=== PATIENT | male | born 1945 | race Caucasian/White ===

== ENCOUNTER 2017-01-09 11:06 | Day surgery (SDC) | payer MEDICARE, OTHER ==
[2017-01-05 15:33] LABS: HEMATOCRIT 42.7 % (40.0-51.0); HEMOGLOBIN 14.6 g/dL (13.6-17.8)
[2017-01-05 15:40] LABS: BUN (BLOOD UREA NITROGEN) 9 MG/DL (6-23); CALCIUM, SERUM 8.7 MG/DL (8.5-10.4); CHLORIDE, SERUM 108 MMOL/L (96-112); CO2 (CARBON DIOXIDE) 28 MMOL/L (24-34); CREATININE 1.14 MG/DL (0.70-1.30); GFR AFRICAN AMERICAN 75 ML/MIN (>=60); GFR NON AFRICAN AMERICAN 64 ML/MIN (>=60); GLUCOSE, SERUM 116 MG/DL (60-99); POTASSIUM, SERUM 4.1 MMOL/L (3.5-5.3); SODIUM, SERUM 139 MMOL/L (135-148)
[~2017-01-09 11:06] MED LIST: BL CHROMIUM200 MCG PO; BRILINTA90 MG PO; ELIQUIS 5 MG TAB5 MG PO; FISH-EPA1000 MG PO; FLOMAX4 PO; KLONO5 PO; LIPITOR40 PO; LYRICA200 MG PO; PRIN10 PO; PROTONIX PO; STOOL SOFTEN240 MG PO; TRAZ50 PO
== END 2017-01-09 13:08 | disposition home or self-care (01) ==
LOC: SDC 11:06
PROVIDERS: Urology
DX: R39.11 Hesitancy of micturition (principal); Z53.8 Procedure and treatment not carried out for other reasons; Z90.49 Acquired absence of other specified parts of digestive tract; Z96.652 Presence of left artificial knee joint; Z98.890 Other specified postprocedural states
CPT/HCPCS: 80048; 85014; 85018; 93005; J2250; J3010

== ENCOUNTER 2017-01-12 11:45 | Observation (INO) | payer MEDICARE, OTHER ==
--- NOTE | ~2017-01-12 | OP ---
Record Of Operation [facility] [address] [place]. [address] NAME: BYRON RUVALCABA : 45 STATUS : ADM IN PAT#: [id number] AGE: 71 ADM/REG DATE : 01/12/17 MR#: [id number] REPORT SERV DATE: 01/12/17 DICTATED BY: STEWART MELGOZA III DATE: 01/12/17 REPORT STATUS : Draft TRANSCRIBED BY: MODL DATE: 01/12/17 DATE OF PROCEDURE: 01/12/2017 PREOPERATIVE DIAGNOSIS: Benign prostatic hypertrophy with bladder outlet obstruction. POSTOPERATIVE DIAGNOSIS: Benign prostatic hypertrophy with bladder outlet obstruction. PROCEDURE: Transurethral resection of prostate gland. SURGEON: Stewart Melgoza M.D. ANESTHESIA: General. SPECIMEN: Prostate chips. DRAINS: A 24-Nepalese three-way Demarco catheter. BLOOD LOSS: 25 mL. INDICATION: Mr. Ruvalcaba is a 71-year-old white male with known enlargement of the prostate gland and bladder outlet obstruction refractory to medical therapy. Consent is obtained for transurethral resection of the prostate gland. He has been counseled regarding the risks of bleeding, infection, as well as ejaculatory dysfunction. DESCRIPTION OF PROCEDURE: After consent was obtained, the patient was identified, was taken to the OR and put to sleep. He was positioned in the low lithotomy position and prepped and draped in the usual fashion. A 22-Nepalese cystoscope was made ready and advanced along the course of the urethra. The patient did have a high median bar, but the obstruction was primarily bilobar. The bladder was inspected. It was moderately trabeculated. There were no cellules noted. No tumors or stones were noted. The bladder was left full. The urethra was then dilated to 28-Nepalese with John sounds and the 26-Nepalese resectoscope was inserted. A transurethral resection of prostate gland was performed in routine fashion. Initially, the median bar was taken down to circular fibers followed by the lateral lobes, floor and roof of the prostatic urethra. Care was taken to not resect too far distally. A rollerball was then used to cauterize the area of resection to obtain decent hemostasis. The NOBOT evacuators were used to evacuate all the prostate chips from the bladder. The bladder was then left full and the scope removed. A 24-Nepalese three-way Demarco catheter was inserted using a catheter guide and the balloon inflated to 30 mL. This was pulled down to the bladder neck and bladder irrigation was begun, which was relatively clear. The patient was then awakened and taken to recovery in stable condition. PH/MODL Stewart Melgoza Record Of [address] [address] NAME: BYRON RUVALCABA : 45 STATUS : ADM IN PAT#: [id number] AGE: 71 ADM/REG DATE : 01/12/17 MR#: [id number] REPORT SERV DATE: 01/12/17 DICTATED BY: STEWART MELGOZA III DATE: 01/12/17 REPORT STATUS : Draft TRANSCRIBED BY: MODL DATE: 01/12/17 Sneha CALDWELL / [id number] CC: Stewart Melgoza III, M.D.
[2017-01-12 16:08] LABS: HEMATOCRIT 41.3 % (40.0-51.0)
[2017-01-13 05:30] LABS: HEMATOCRIT 40.8 % (40.0-51.0)
[2017-01-13] MEDS ORDERED: ULTRAM50 PO (14:12)
== END 2017-01-13 14:52 | disposition home or self-care (01) ==
LOC: SDC/OF 11:45 → PACU 15:24 → 4SO 19:39
PROVIDERS: Urology
PROC: 0VT08ZZ Resection of Prostate, Via Natural or Artificial Opening Endoscopic (ICD-10-PCS; principal; 2017-01-12 13:30)
DX: N40.1 Benign prostatic hyperplasia with lower urinary tract symptoms (principal); N13.8 Other obstructive and reflux uropathy; I25.10 Atherosclerotic heart disease of native coronary artery without angina pectoris; I10 Essential (primary) hypertension; Z95.5 Presence of coronary angioplasty implant and graft; Z88.2 Allergy status to sulfonamides; Z88.6 Allergy status to analgesic agent; Z88.5 Allergy status to narcotic agent; Z79.899 Other long term (current) drug therapy; Z90.49 Acquired absence of other specified parts of digestive tract; Z96.652 Presence of left artificial knee joint; Z98.890 Other specified postprocedural states
CPT/HCPCS: 84295; 85014; 85018; 88305; A9270-GY; G0378; J2250; J2405; J2550; J2710; J3010

== ENCOUNTER 2017-01-14 19:01 | Emergency (ER) | payer MEDICARE, OTHER ==
[~2017-01-14 19:01] MED LIST changes: +ULTRAM50 PO
[2017-01-14 20:03] LABS: BASOPHILS 0.1 %; BASOPHILS ABSOLUTE 0.01 10/3/uL (0.0-0.16); EOSINOPHILS 0.2 %; EOSINOPHILS ABSOLUTE 0.02 10/3/uL (0.0-0.53); ER CBC TAT 0 Hrs 05 Mins; HEMATOCRIT 40.5 % (40.0-51.0); HEMOGLOBIN 14.2 g/dL (13.6-17.8); IMMATURE GRANULOCYTES 0.4 %; IMMATURE GRANULOCYTES ABSOLUTE 0.05 10/3/uL (0.0-0.11); LYMPHOCYTES 3.7 %; LYMPHOCYTES ABSOLUTE 0.43 10/3/uL (0.67-4.30); MEAN CORPUS HGB CONC 35.1 g/dL (32.0-36.0); MEAN CORPUSCULAR HEMOGLOB 30.5 pg (26.0-34.0); MEAN CORPUSCULAR VOLUME 87.1 fL (80-100); MEAN PLATELET VOLUME 11.3 fL (9.2-13.0); MONOCYTES 10.5 %; MONOCYTES ABSOLUTE 1.22 10/3/uL (0.21-1.20); NEUTROPHILS 85.1 %; NEUTROPHILS ABSOLUTE 9.92 10/3/uL (2.02-8.40); PLATELET COUNT 121 10/3/uL (150-400); RBC DISTRIBUTION WIDTH 14.3 % (12.0-16.0); RED CELL COUNT 4.65 10/6/uL (4.7-6.1); WHITE BLOOD CELLS 11.7 10/3/uL (4.5-10.5)
[2017-01-14 20:06] LABS: MANUAL DIFF NO %
[2017-01-14 20:21] LABS: A/G RATIO 1.1 (0.7-1.9); ALBUMIN 3.6 G/DL (3.5-5.0); ALKALINE PHOSPHATASE 85 U/L (45-117); BUN (BLOOD UREA NITROGEN) 15 MG/DL (6-23); CALCIUM, SERUM 8.8 MG/DL (8.5-10.4); CHLORIDE, SERUM 106 MMOL/L (96-112); CO2 (CARBON DIOXIDE) 25 MMOL/L (24-34); CREATININE 1.04 MG/DL (0.70-1.30); GFR AFRICAN AMERICAN 83 ML/MIN (>=60); GFR NON AFRICAN AMERICAN 72 ML/MIN (>=60); GLOBULIN 3.4 G/DL (2.5-4.1); GLUCOSE, SERUM 135 MG/DL (60-99); POTASSIUM, SERUM 4.3 MMOL/L (3.5-5.3); SGPT(ALT) 23 U/L (5-65); SODIUM, SERUM 138 MMOL/L (135-148); TOTAL BILIRUBIN 0.9 MG/DL (0-1.2)
[2017-01-14 20:22] LABS: SGOT(AST) 19 U/L (5-40)
[2017-01-14 21:28] LABS: WBC (NOT ORDERED) (RFLEX) 0 (0-5)
[2017-01-14 21:35] LABS: ASCORBIC ACID (UR NOT ORDER) NEG (NEG); BILIRUBIN, URINE NEGATIVE (NEG); ER URINALYSIS TAT 0 Hrs 07 Mins; KETONE, URINE NEGATIVE (NEG); LEUKOCYTE ESTERASE(NOT OR NEG (NEG); NITRITE (URINE) NEG (NEG)
[2017-01-14 22:33] LABS: PARTIAL THROMBO TIME 31.4 SEC (22.5-37.2)
[2017-01-14 22:39] LABS: INTERNATIONAL NORMAL RATI 1.1 UNITS (-); PROTIME (NOT ORD) 14.1 SEC (12.0-14.5)
== END 2017-01-14 23:30 | disposition home or self-care (01) ==
LOC: ER 19:01
PROVIDERS: Emergency Medicine; Nurse Practitioner
PROC: 0T9B70Z Drainage of Bladder with Drainage Device, Via Natural or Artificial Opening (ICD-10-PCS; principal; 2017-01-14)
DX: R33.9 Retention of urine, unspecified (principal); R31.9 Hematuria, unspecified; K59.00 Constipation, unspecified; I25.2 Old myocardial infarction; Z88.2 Allergy status to sulfonamides; Z88.5 Allergy status to narcotic agent; Z88.6 Allergy status to analgesic agent; Z88.8 Allergy status to other drugs, medicaments and biological substances; Z79.899 Other long term (current) drug therapy
CPT/HCPCS: 74000; 80053; 81001; 83690; 85025; 85610; 85730; 96374; 96375; 99284; A9270-GY; J2405